=== PATIENT | male | born 1985 | race Hispanic/Latino ===

== ENCOUNTER 2019-08-10 02:50 | Emergency (ER) | payer SELFPAY ==
--- NOTE | 2019-08-10 08:03 | RAD ---
LUMBAR SPINE RADIOGRAPHS 3 VIEWS: DAET: 08/10/2019. PROVIDED CLINICAL HISTORY: Pain status post injury. FINDINGS: Five [id number] lumbar-type vertebral bodies are present. Lumbar alignment appears normal. Tamiko tebral body heights appear preserved. Intervertebral disk space heights appear preserved. Pedicles appear intact. No evidence for a fracture. SI joints appear symmetric. No evidence for radiopaque foreign body within the soft tissues. IMPRESSION: No evidence for an acute osseous abnormality or radiopaque foreign body. POS: RANJIT
== END 2019-08-10 03:39 | disposition home or self-care (01) ==
LOC: ERS 02:50
DX: S30.0XXA Contusion of lower back and pelvis, initial encounter (principal); W22.03XA Walked into furniture, initial encounter
CPT/HCPCS: 72100